=== PATIENT | female | born 1995 | race American Indian/Alaskan Native ===

== ENCOUNTER 2023-10-31 17:59 | Emergency (ER) | payer MEDICAID ==
[2023-10-31 18:14] VITALS: BP 115/80; PULSE 104
[2023-10-31] MEDS: Acetaminophen 500 MG Tab PO ONE (18:56)
[2023-10-31] MEDS: Ibuprofen 400 MG Tab PO ONE (18:56)
[2023-10-31] MEDS: oxyCODONE 5 MG Tab PO ONE (19:53)
== END 2023-10-31 20:21 | disposition home or self-care (01) ==
LOC: JP.ED 17:59
DX: S82.141A Displaced bicondylar fracture of right tibia, initial encounter for closed fracture (principal); F17.210 Nicotine dependence, cigarettes, uncomplicated; Z86.16 Personal history of COVID-19; W22.8XXA Striking against or struck by other objects, initial encounter
CPT/HCPCS: 73562; 99283; A9270